=== PATIENT | female | born 1950 | race Caucasian/White ===

== ENCOUNTER 2017-11-16 09:08 | Emergency (ER) | payer OTHER ==
[2017-11-16 09:23] VITALS: BMI 23.3
--- NOTE | 2017-11-16 09:53 | PDOC ---
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 Patient presents with body aches, redness and drainage to bilateral eyes, sore throat, tactile fever since Tuesday. Today developed left- sided chest pain and left arm pain "feels weird". Described chest pain as dull , pressure to left side of chest. Denies any jaw pain. Shortness of breath, worse at night. No nausea vomiting or diarrhea. Past Medical History: Denies, mother with history of OH at young age Allergies: No known allergies Medications: None Family History: Non-contributory Social History: Denies smoking, alcohol use, or IVDU Review of Systems GENERAL/CONSTITUTIONAL: Tactile fever, generalized body aches. No weakness. No weight change. HEAD, EYES, EARS, NOSE AND THROAT: No change in vision. Bilateral redness to eyes with drainage, No ear pain or discharge. Sore throat. CARDIOVASCULAR: Left-sided chest pain and occasional shortness of breath RESPIRATORY: Nonproductive cough, no wheezing, or hemoptysis. GASTROINTESTINAL: No nausea, vomiting, diarrhea or constipation. No rectal bleeding. GENITOURINARY: No dysuria, frequency, or change in urination. MUSCULOSKELETAL: No joint or muscle swelling or pain. No neck or back pain. SKIN AND BREASTS: No rash or easy bruising. NEUROLOGIC: No headache, vertigo, loss of consciousness, or loss of sensation. PSYCHIATRIC: No depression or anxiety. ENDOCRINE: No increased thirst. No abnormal weight change. HEMATOLOGIC/LYMPHATIC: No anemia, easy bleeding, or history of blood clots. ALLERGIC/IMMUNOLOGIC: No hives or skin allergy. No latex allergy. Physical Exam: GENERAL: The patient is awake, alert, and fully oriented. HEAD: Normal with no signs of trauma. EYES: Pupils equal, round and reactive to light, extraocular movements intact, sclera anicteric, conjunctiva injected with yellow drainage. ENT: Ears normal, nares patent, oropharynx clear without exudates. Moist mucous membranes. No uvula deviation NECK: Normal range of motion, supple without lymphadenopathy, JVD, or masses. LUNGS: Breath sounds equal, clear to auscultation bilaterally. No wheezes, and no crackles. HEART: Regular rate and rhythm, normal S1 and S2 without murmur, rub or gallop. ABDOMEN: Soft, nontender, normoactive bowel sounds. No guarding, no rebound. No masses. No bruising or abrasions MUSCULOSKELETAL: Normal range of motion, no edema. No clubbing or cyanosis. No cords, erythema, or tenderness. No CVA Tenderness with fist. NEUROLOGICAL: Cranial nerves II through XII grossly intact. Normal speech, normal gait. SKIN: Warm, Dry, normal turgor, no rashes or lesions noted. 11/16/17 09:56 Past History - Past Medical History Allergies/Adverse Reactions: Allergies Allergy/AdvReac Type Severity Reaction Status Date / Time No Known Drug Allergies Allergy Verified 11/16/17 09:20 Home Medications: Ambulatory Orders NK [No Known Home Medication] 11/16/17 Anemia: No Asthma: No Cancer: No Cardiac Disorders: No CVA: Yes (NO RESIDUAL) COPD: No CHF: No Dementia: No Diabetes: No GI Disorders: Yes (H PYLORI; COLON POLYPS) Disorders: No HTN: No Hypercholesterolemia: Yes Liver Disease: No Seizures: No Thyroid Disease: No - Surgical History Appendectomy: No Cholecystectomy: No Orthopedic Surgery: Yes (HAND FX) - Immunization History Immunization Up to Date: Yes - Suicide/Smoking/Psychosocial Hx Smoking History: Never smoked Have you smoked in the past 12 months: No Information on smoking cessation initiated: No Hx Alcohol Use: No Drug/Substance Use Hx: No Substance Use Type: None *Physical Exam - Vital Signs Last Vital Signs Temp Pulse Resp BP Pulse Ox 98.3 F 69 16 160/90 97 11/16/17 09:20 11/16/17 09:20 11/16/17 09:20 11/16/17 09:20 11/16/17 09:20 ED Treatment Course - LABORATORY CBC & Chemistry Diagram: 11/16/17 11:59 11/16/17 11:55 Medical Decision Making - Medical Decision Making 11/16/17 10:00 A/P: Patient here for evaluation of generalized body ache, fever, sore throat, cough, left-sided chest pain and left arm pain. Patient's blood pressure is an 160/90. Patient with no history of hypertension. On examination patient states that she's been feeling sick since Tuesday however developed chest pain to left side today. Is concerned mother at a young age of OH. EKG ordered. Rapid influenza and rapid strep sent. Patient to be transferred to main emergency department report to Lidia Saleh and Abdoul ROD. This is stable for transfer. 11/16/17 10:01 *DC/Admit/Observation/Transfer Diagnosis at time of Disposition: Viral upper respiratory illness, Atypical chest pain - Discharge Dispostion Disposition: HOME Condition at time of disposition: Improved - Referrals Referrals: Tiff Batista [Primary Care Provider] - - Patient Instructions Printed Discharge Instructions: How to Avoid a Cold or Flu, DI for Viral Upper Respiratory Infection -- Adult Additional Instructions: Come back to the ER for any new, worsening or concerning symptom. Follow up with your primary care provider within the next 3 days - Post Discharge Activity
--- NOTE | 2017-11-16 10:26 | PDOC ---
Attending Attestation - HPI HPI: 11/16/17 11:31 The patient is a 66 year old female, with a significant past medical history of GERD, who presents to the emergency department with subjective fever, body aches , nasal congestion, and cough for approximately 4 days. The patient reports she initially developed discomfort in her arms bilaterally, which eventually became diffuse. Patient reports a dry cough, sore throat, and hoarseness. Patient reports associated chest discomfort and shortness of secondary to coughing, but denies any diaphoresis, palpitations, or lower extremity edema. Yesterday, patient reports difficulty opening her eyes secondary to crusting, but states when she was able to open them she noticed increased erythema. She denies any associated blurry vision, double vision, or eye pain. She denies any abdominal pain, nausea, vomiting, or changes in bowel/bladder habits. She denies any recent travel or sick contacts. - Medical Decision Making 11/16/17 11:31 Documentation prepared by Brandon Sanabria, acting as medical billing specialist for Sina Callejas MD. <Brandon Sanabria - Last Filed: 11/16/17 11:31> - Resident Resident Name: Miguel Angel Thakkar - ED Attending Attestation I have performed the following: I have examined & evaluated the patient, The case was reviewed & discussed with the resident, I agree w/resident's findings & plan, Exceptions are as noted - Physicial Exam PE: 11/16/17 14:42 Patient is awake and alert, nontoxic-appearing, in no distress Normocephalic, atraumatic PERRLA, EOMI CTA, + reproducible sternal and xiphoid tenderness to palpation sft, nt, nd, bs-nl No lower extremity edema - Medical Decision Making 11/16/17 14:44 Patient is a 66-year-old female with history of GERD who presents with flulike symptoms and reproducible sternal tenderness to palpation was exacerbated by cough. Patient is flu and group a strep negative. Chest x-ray reveals no evidence of infiltrates or effusion. Heart score is 3 at the moment. I do not suspect ACS or PE at this time. We'll do serial cardiac enzymes and if negative , will discharge with cardiology follow-up. <Sina Callejas - Last Filed: 11/16/17 14:45>
--- NOTE | 2017-11-16 11:41 | PDOC ---
History of Present Illness - General Chief Complaint: Cold Symptoms Stated Complaint: PAIN/ BODY, THROAT Time Seen by Provider: 11/16/17 09:25 History Source: Patient Exam Limitations: No Limitations - History of Present Illness Initial Comments: 11/16/17 11:40 66F with pmh of GERD presents with 3 days of conjunctivitis, sore throat, chest pain and shoulder pain. The chest pain and shoulder pain are mild and similar in nature. Denies nausea, vomiting, shortness of breath, dysuria. Past History - Past Medical History Allergies/Adverse Reactions: Allergies Allergy/AdvReac Type Severity Reaction Status Date / Time No Known Drug Allergies Allergy Verified 11/16/17 09:20 Home Medications: Ambulatory Orders NK [No Known Home Medication] 11/16/17 Anemia: No Asthma: No Cancer: No Cardiac Disorders: No CVA: Yes (NO RESIDUAL) COPD: No CHF: No Dementia: No Diabetes: No GI Disorders: Yes (H PYLORI; COLON POLYPS) Disorders: No HTN: No Hypercholesterolemia: Yes Liver Disease: No Seizures: No Thyroid Disease: No - Surgical History Appendectomy: No Cholecystectomy: No Orthopedic Surgery: Yes (HAND FX) - Immunization History Immunization Up to Date: Yes - Suicide/Smoking/Psychosocial Hx Smoking History: Never smoked Have you smoked in the past 12 months: No Information on smoking cessation initiated: No Hx Alcohol Use: No Drug/Substance Use Hx: No Substance Use Type: None Review of Systems - Review of Systems Able to Perform ROS?: Yes Is the patient limited Salvadorean proficient: No Constitutional: No: Symptoms Reported HEENTM: Yes: See HPI Respiratory: No: Symptoms reported Cardiac (ROS): Yes: See HPI. No: Chest Pain ABD/GI: No: Symptoms Reported : No: Symptoms Reported Musculoskeletal: Yes: See HPI Integumentary: No: Symptoms Reported Neurological: No: Symptoms reported All Other Systems: Reviewed and Negative *Physical Exam - Vital Signs Last Vital Signs Temp Pulse Resp BP Pulse Ox 98.3 F 69 16 160/90 97 11/16/17 09:20 11/16/17 09:20 11/16/17 09:20 11/16/17 09:20 11/16/17 09:20 - Physical Exam General Appearance: Yes: Nourished, Appropriately Dressed. No: Apparent Distress HEENT: positive: EOMI, ELSIE, Normal ENT Inspection, Other (flushed face) Neck: negative: Tender Respiratory/Chest: positive: Lungs Clear, Normal Breath Sounds. negative: Chest Tender, Respiratory Distress Cardiovascular: positive: Regular Rhythm, Regular Rate, S1, S2 Gastrointestinal/Abdominal: positive: Normal Bowel Sounds, Flat, Soft. negative : Tender Musculoskeletal: positive: Normal Inspection. negative: CVA Tenderness Extremity: positive: Normal Capillary Refill, Normal Inspection, Normal Range of Motion Neurologic: positive: Fully Oriented, Alert, Normal Mood/Affect, Motor Strength 5/5. negative: Normal Response, Facial Droop ED Treatment Course - LABORATORY CBC & Chemistry Diagram: 11/16/17 11:59 11/16/17 11:55 - ADDITIONAL ORDERS Additional order review: 11/16/17 09:52 Group A Strep Rapid Antigen - Final Throat 11/16/17 09:52 Influenza Types A,B Antigen (GI) - Final Nasopharyngeal Swab - Final Medical Decision Making - Medical Decision Making 11/16/17 12:23 66F with pmh of GERD presents with 3 days of conjunctivitis, sore throat, chest pain and shoulder pain. Low heart score, low suspicion for [place] Wells score is zero, low suspicion for PE. This is likely a viral URI. Will send labs, trop, cxr. 11/16/17 16:26 all labs negative, 2nd troponin negative. Will d/c home. *DC/Admit/Observation/Transfer Diagnosis at time of Disposition: Viral upper respiratory illness, Atypical chest pain - Discharge Dispostion Disposition: HOME Condition at time of disposition: Improved Admit: No - Referrals Referrals: Tiff Batista [Primary Care Provider] - - Patient Instructions Printed Discharge Instructions: How to Avoid a Cold or Flu, DI for Viral Upper Respiratory Infection -- Adult Additional Instructions: Come back to the ER for any new, worsening or concerning symptom. Follow up with your primary care provider within the next 3 days - Post Discharge Activity
[2017-11-16 12:07] LABS: BASO % 0.8 % (0-2.0); EOS % 2.2 % (0-4.5); HEMATOCRIT 41.3 % (32.4-45.2); HEMOGLOBIN 14.1 GM/dL (10.7-15.3); LYMPH % 25.5 % (8-40); MCH 30.9 pg (25.7-33.7); MCHC 34.1 g/dl (32.0-36.0); MEAN CELL VOLUME 90.8 fl (80-96); MEAN PLT VOLUME 7.5 fl (7.5-11.1); MONO % 8.6 % (3.8-10.2); NEUT % 62.9 % (42.8-82.8); PLATELET COUNT 260 K/MM3 (134-434); RBC 4.55 M/mm3 (3.60-5.2); RDW 13.5 % (11.6-15.6); WHITE BLOOD COUNT 8.5 K/mm3 (4.0-10.0)
[2017-11-16 12:28] LABS: ALBUMIN 3.6 g/dl (3.4-5.0); ANION GAP 5 (8-16); BILIRUBIN,TOTAL 0.6 mg/dL (0.2-1.0); BLOOD UREA NITROGEN 13 mg/dL (7-18); CALCIUM 8.4 mg/dL (8.5-10.1); CHLORIDE 106 mmol/L (98-107); CO2 28 mmol/L (21-32); CREATININE 0.7 mg/dL (0.55-1.02); GLUCOSE,RANDOM 96 mg/dL (74-106); POTASSIUM 3.9 mmol/L (3.5-5.1); SGOT/AST 24 U/L (15-37); SGPT/ALT 20 U/L (12-78); SODIUM 139 mmol/L (136-145); TOT PROT 7.3 g/dl (6.4-8.2)
[2017-11-16 12:37] LABS: ALK PHOS 85 U/L (45-117)
--- NOTE | 2017-11-16 15:33 | EKG ---
Test Reason : Blood Pressure : / mmHG Vent. Rate : 068 BPM Atrial Rate : 068 BPM P-R Int : 162 ms QRS Dur : 086 ms QT Int : 444 ms P-R-T Axes : 032 021 047 degrees QTc Int : 472 ms NORMAL SINUS RHYTHM NORMAL ECG NO PREVIOUS ECGS AVAILABLE Confirmed by RAYMUNDO TADEO, LOYD ([id number]) on 11/16/2017 3:33:14 PM Referred By: Confirmed By:LOYD FONSECA MD
[2017-11-16 15:44] VITALS: BP 109/73; PULSE 78; TEMP 98.3
== END 2017-11-16 15:50 | disposition home or self-care (01) ==
LOC: JER 09:08 → JERFT 09:08 → JER 15:50
DX: R07.89 Other chest pain (principal); J06.9 Acute upper respiratory infection, unspecified; B97.89 Other viral agents as the cause of diseases classified elsewhere; E78.00 Pure hypercholesterolemia, unspecified; Z86.73 Personal history of transient ischemic attack (TIA), and cerebral infarction without residual deficits
CPT/HCPCS: 36415; 71045-TC-FY; 80053; 84443; 84484; 85025; 87070; 87430; 87804; 93005; 93010; 99284-25

== ENCOUNTER 2018-09-08 08:46 | Emergency (ER) | payer OTHER ==
[2018-09-08 09:01] VITALS: BP 117/57; PULSE 77; TEMP 99.6; BMI 24.1
--- NOTE | 2018-09-08 09:01 | PDOC ---
History of Present Illness - General Chief Complaint: Pain, Acute Stated Complaint: COUGH / CONGESTION Time Seen by Provider: 09/08/18 09:01 History Source: Patient Exam Limitations: No Limitations - History of Present Illness Initial Comments: 09/08/18 09:03 HPI: This 67-year-old Bulgarian-speaking only woman presents here with her daughter who does speak Swedish is stating that her mom is been having cough, chills, body aches, and a bout of vomiting for the past week. She denies having the flu vaccine Chief Compliant: Cough, chills, body aches and upper respiratory symptoms Pain location: Duration: Modifying factors: Quality: Radiating: Severity: Time: PMH: Denies FH: Pt has not recently traveled outside the country in the last 30 days. Pt has not been in contact with people who have traveled out of the country, in contact with people who have been ill with fever, n, v, d. SH: smoking use: NONE illicit drug use: NONE alcohol use: NONE employment/educational status: Lives with daughter sexual history: PSH: Denies Home med use noted on SEP Allergies: NKA Immunizations: Not receive the flu vaccine PCP: Past History - Past Medical History Allergies/Adverse Reactions: Allergies Allergy/AdvReac Type Severity Reaction Status Date / Time No Known Drug Allergies Allergy Verified 09/08/18 08:51 Home Medications: Ambulatory Orders Oseltamivir Phosphate [Tamiflu] 75 mg PO BID #10 capsule 09/08/18 Anemia: No Asthma: No Cancer: No Cardiac Disorders: No CVA: Yes (NO RESIDUAL) COPD: No CHF: No Dementia: No Diabetes: No GI Disorders: Yes (H PYLORI; COLON POLYPS) Disorders: No HTN: No Hypercholesterolemia: Yes Liver Disease: No Seizures: No Thyroid Disease: No - Surgical History Appendectomy: No Cholecystectomy: No Orthopedic Surgery: Yes (HAND FX) - Immunization History Immunization Up to Date: Yes - Suicide/Smoking/Psychosocial Hx Smoking History: Never smoked Have you smoked in the past 12 months: No Hx Alcohol Use: No Drug/Substance Use Hx: No Substance Use Type: None Review of Systems - Review of Systems Able to Perform ROS?: Yes Comments:: 09/08/18 09:21 General statement: Upper respiratory symptoms, cough, body aches from coughing, fever of 101 yesterday Hematology: neg history of bleeding/blood thinners Skin: Neg for lesions, rash, bruising. HEENT: Nasal congestion, cough, abdominal and chest discomfort from coughing so forcefully, Respiratory: Neg SOB or difficulty in breathing Cardiac: Neg chest pain GI: Neg pain, n/v : Neg problems on voiding MS: Neg for joint pain/stiffness, no edema Neuro: Neg for LOC, weakness, Endocrine: Neg for excess thirst/hunger, cold/heat intolerance, excess sweating Allergies: Neg for allergies *Physical Exam - Vital Signs Last Vital Signs Temp Pulse Resp BP Pulse Ox 99.6 F 77 18 117/57 L 96 09/08/18 08:52 09/08/18 08:52 09/08/18 08:52 09/08/18 08:52 09/08/18 08:52 - Physical Exam Comments: 09/08/18 09:22 General Appearance: This ill-appearing 67-year-old female V/S: hemodynamically stable, afebrile Skin: WNL of pt's skin color, no signs of pallor, mottling, cyanosis Head:symmetrical Eyes: EOM's intact, PERRLA Ears: denies pain Nose: patent but with turbulent congestion Throat: lips, teeth, gums, tongue, buccal mucos pink and moist without any erythema in the oropharynx Lungs: Chest symmetry equal. Cap refill <3 seconds. Lung sounds clear no wheezing, Cardiac: PMI at R 4MCL space, pos S1 and S2, regular rate. Abdomen: Soft, round, nontender : Not observed Muscularskeletal: Gait steady, ambulated in to ER, no edema +PMS Neuro: AAOx3, cognitively intact, speech clear and appropriate. Moderate Sedation - Procedure Monitoring Vital Signs: Procedure Monitoring Vital Signs Temperature 99.6 F 09/08/18 08:52 Pulse Rate 77 09/08/18 08:52 Respiratory Rate 18 09/08/18 08:52 Blood Pressure 117/57 L 09/08/18 08:52 O2 Sat by Pulse Oximetry (%) 96 09/08/18 08:52 Medical Decision Making - Medical Decision Making 09/08/18 09:23 Patient initially seen and examined. Patient appears to be having an upper respiratory infection or versus the flu. Flu swab obtained. Motrin given for a low-grade fever of 99.6. 02/15/19 09:46 Patient with positive a flu, patient discharged with symptomatic suggestions and hydration while at home *DC/Admit/Observation/Transfer Diagnosis at time of Disposition: Influenza A - Discharge Dispostion Disposition: HOME Condition at time of disposition: Stable Decision to Admit order: No - Prescriptions Prescriptions: Oseltamivir Phosphate [Tamiflu] 75 mg PO BID #10 capsule - Referrals Referrals: Tiff Batista [Primary Care Provider] - - Patient Instructions Printed Discharge Instructions: Influenza Additional Instructions: Discharge instructions 1. Please follow up with your primary physician within the next few days and explain that you have been seen here in the Emergency Room. 2. If you experience any worsening of symptoms, please return to the ER 3. Rest, take the Tamiflu to help relieve some of the symptoms of influenza. This may make you nauseous and if it becomes a large amount of vomiting, stop the Tamiflu as this is a side effect. 4. Drink plenty of water and Gatorade 5 take Tylenol for any fevers or chills. Avoid contact with others. - Post Discharge Activity
[2018-09-08] MEDS ORDERED: IBUPROFEN 400 MG TABLET (FP) PO ONE ×2 (09:11→09:27)
== END 2018-09-08 10:17 | disposition home or self-care (01) ==
LOC: JER 08:46
DX: J09.X2 Influenza due to identified novel influenza A virus with other respiratory manifestations (principal)
CPT/HCPCS: 87804; 99282-25

== ENCOUNTER 2024-01-13 13:44 | Observation (INO) | payer OTHER ==
[2024-01-13 15:43] LABS: BASO % 0.7 % (0-2.0); EOS % 1.2 % (0-4.5); HEMATOCRIT 41.5 % (32.4-45.2); HEMOGLOBIN 13.9 GM/dL (10.7-15.3); LYMPH % 39.2 % (8-40); MCH 30.8 pg (25.7-33.7); MCHC 33.6 g/dl (32.0-36.0); MEAN CELL VOLUME 91.7 fl (80-96); MEAN PLT VOLUME 7.3 fl (7.5-11.1); MONO % 9.2 % (3.8-10.2); NEUT % 49.7 % (42.8-82.8); PLATELET COUNT 321 10^3/uL (134-434); RBC 4.52 M/mm3 (3.60-5.2); WHITE BLOOD COUNT 6.4 K/mm3 (4.0-10.0)
[2024-01-13 15:49] LABS: INR 0.99 (0.83-1.09); PROTHROMBIN TIME (PATIENT) 11.2 SEC (9.7-13.0)
[2024-01-13 15:52] LABS: ACTIVATED PTT 27.7 SECONDS (25.2-36.5)
[2024-01-13 16:08] LABS: CALCIUM 9.8 mg/dL (8.5-10.1)
[2024-01-13 16:09] LABS: BLOOD UREA NITROGEN 17.2 mg/dL (7-18)
[2024-01-13 16:14] LABS: BILIRUBIN,TOTAL 0.8 mg/dL (0.2-1); TOT PROT 7.8 g/dl (6.4-8.2)
[2024-01-13 17:25] LABS: PH,URINE 5.5 (5.0-8.0); URINE APPEARANCE CLEAR; URINE BILIRUBIN NEGATIVE (NEGATIVE); URINE COLOR YELLOW; URINE GLUCOSE (UA) NEGATIVE (NEGATIVE); URINE KETONE NEGATIVE (NEGATIVE); URINE LEUK ESTERASE NEGATIVE (NEGATIVE); URINE NITRITE NEGATIVE (NEGATIVE); URINE PROTEIN NEGATIVE (NEGATIVE); URINE UROBILINOGEN 0.2 mg/dL (0.2-1.0)
[2024-01-14 01:17] VITALS: BMI 33.5
[2024-01-14 07:25] LABS: BASO % 0.8 % (0-2.0); HEMATOCRIT 41.3 % (32.4-45.2); HEMOGLOBIN 13.9 GM/dL (10.7-15.3); LYMPH % 37.1 % (8-40); MCH 31.3 pg (25.7-33.7); MCHC 33.7 g/dl (32.0-36.0); MEAN CELL VOLUME 92.9 fl (80-96); NEUT % 51.1 % (42.8-82.8); PLATELET COUNT 293 10^3/uL (134-434); RBC 4.44 M/mm3 (3.60-5.2); RDW 13.9 % (11.6-15.6); WHITE BLOOD COUNT 6.2 K/mm3 (4.0-10.0)
[2024-01-14 07:41] LABS: POTASSIUM 3.6 mmol/L (3.5-5.1)
[2024-01-14 07:42] LABS: CALCIUM 9.2 mg/dL (8.5-10.1)
[2024-01-14 07:44] LABS: MAGNESIUM 2.3 mg/dL (1.8-2.4)
[2024-01-14 07:46] LABS: CREATININE 0.9 mg/dL (0.55-1.3); PHOSPHOROUS 3.7 mg/dL (2.5-4.9)
[2024-01-14] MEDS: HYDROCHLOROTHIAZIDE 12.5 MG CAPSULE (FP) PO SCH (10:27)
[2024-01-14] MEDS: ENOXAPARIN NA (PORCINE) 40 MG/0.4 ML DISP.SYRIN SQ SCH (10:28)
[2024-01-14] MEDS: FAMOTIDINE 20 MG TABLET PO SCH (10:28)
[2024-01-14] MEDS: POTASSIUM CHLORIDE TABS 10 MEQ TABLET.ER (FP) PO SCH (11:19)
[2024-01-14 21:09] VITALS: RESP 18
[2024-01-14] MEDS: GABAPENTIN 100 MG CAPSULE PO SCH (21:57)
[2024-01-15] MEDS: LEVOTHYROXINE NA 25 MCG TABLET (FP) PO SCH (06:15)
[2024-01-15] MEDS: DOCUSATE SODIUM 100 MG CAPSULE (FP) PO PRN (10:36)
[2024-01-15] MEDS: ACETAMINOPHEN 325 MG TABLET (FP) PO PRN (18:14)
[2024-01-16] MEDS: REGADENOSON 0.4 MG/5 ML PRE-FILLED SYRINGE IVPUSH ONE (13:00)
[2024-01-16 19:06] VITALS: BP 145/79; PULSE 86; TEMP 97.9
== END 2024-01-16 19:32 | disposition home or self-care (01) ==
LOC: JER 13:44 → JERBED 17:32 → J4S 21:06
PROVIDERS: ADMIT Internal Medicine; ATTEND Family Medicine
PROC: 3E023GC Introduction of Other Therapeutic Substance into Muscle, Percutaneous Approach (ICD-10-PCS; principal; 2024-01-13)
PROC: 3E033GC Introduction of Other Therapeutic Substance into Peripheral Vein, Percutaneous Approach (ICD-10-PCS; 2024-01-13)
DX: R07.89 Other chest pain (principal); R06.09 Other forms of dyspnea; R00.2 Palpitations; I10 Essential (primary) hypertension; E78.5 Hyperlipidemia, unspecified; Z86.73 Personal history of transient ischemic attack (TIA), and cerebral infarction without residual deficits; K29.70 Gastritis, unspecified, without bleeding; E03.9 Hypothyroidism, unspecified; R42 Dizziness and giddiness
CPT/HCPCS: 0241U-QW; 36415; 71046-TC-FY; 78452-TC; 80048; 80053; 81003; 83735; 83880; 84100; 84439; 84443; 84484; 85025; 85379; 85610; 85730; 87086; 93005; 93010; 93017; 93306-TC; 93970-TC; 96372; 96374; 99285-25; A9502; G0378; J2785